=== PATIENT | male | born 1985 | race Caucasian/White ===

== ENCOUNTER 2023-12-14 23:46 | Emergency (ER) | payer MEDICAID, OTHER ==
[~2023-12-14] VITALS: Ht 165.1 cm; Wt 95.4 kg
[2023-12-14 23:56] VITALS: BP 144/92; RESP 18; O2SAT 97
[2023-12-14 23:57] VITALS: PULSE 105
[2023-12-15 00:40] LABS: Basophils # (auto) 0.1 10 ^3/uL (0-0.2); Eosinophils # (auto) 0 10 ^3/uL (0-0.8); Eosinophils % (auto) 0.3 % (0.0-7.0); Lymphocytes # (auto) 2.7 10 ^3/uL (0.4-5.4); Monocytes # (auto) 1.8 10 ^3/uL (0-1.3); Neutrophils # (auto) 10.3 10 ^3/uL (1.6-8.6); Nucleated Red Blood Cells % 0.1 %; White Blood Cell 14.9 10^3/uL (4.4-10.8)
[2023-12-15 00:42] LABS: Basophils % (auto) 0.6 % (0.0-2.0); Hematocrit 51.3 % (41.0-53.0); Hemoglobin 17.6 g/dL (13.5-17.5); Lymphocytes % (auto) 18.2 % (10.0-50.0); Mean Corpuscular Hemoglobin 29.4 pg (28.0-32.0); Mean Corpuscular Hgb Conc. 34.4 g/dL (32.0-36.0); Mean Corpuscular Volume 85.4 fL (80.0-100.0); Neutrophils % (auto) 68.9 % (37.0-80.0); Red Cell Distribution Width 13.1 % (11.8-14.3)
[2023-12-15 00:57] LABS: Alanine Aminotransferase 22 U/L (7-40); Albumin 5.2 g/dL (3.2-4.8); Alkaline Phosphatase 54 U/L (46-116); Anion Gap 9 (5-15); Aspartate Aminotransferase 24 U/L (13-40); Blood Urea Nitrogen 23 mg/dL (9-23); Calcium 10.3 mg/dL (8.7-10.4); Carbon Dioxide 25 mmol/L (20-30); Chloride 99 mmol/L (98-107); Glucose 105 mg/dL (74-106); Sodium 133 mmol/L (136-145)
[2023-12-15 00:58] LABS: Bilirubin, Total 3.1 mg/dL (0.2-1.0); Total Protein 8.4 g/dL (5.7-8.2)
[2023-12-15] MEDS ORDERED: ONDANSETRON ODT 4 MG TAB PO ONE (01:00)
[2023-12-15 01:36] LABS: Blood Alcohol < 3.0 mg/dL (<10)
[2023-12-15] MEDS ORDERED: levoFLOXacin 250 MG TAB PO ONE (02:15)
[2023-12-15] MEDS ORDERED: LEVO500T91 PO (03:08)
[2023-12-15] MEDS ORDERED: IBUP-1454 PO (03:08)
== END 2023-12-15 04:52 | disposition home or self-care (01) ==
LOC: ER 23:46
DX: S63.8X1A Sprain of other part of right wrist and hand, initial encounter (principal); R55 Syncope and collapse; Z79.899 Other long term (current) drug therapy; X58.XXXA Exposure to other specified factors, initial encounter; Y93.89 Activity, other specified; Y92.89 Other specified places as the place of occurrence of the external cause; Y99.8 Other external cause status
CPT/HCPCS: 36415; 70450; 71045; 73130; 80053; 80320; 83605; 83880; 84484; 85025; 85379; 87040; 93005